=== PATIENT | female | born 1940 | race African-American/Black ===

== ENCOUNTER 2017-05-18 10:37 | Emergency (ER) | payer MEDICARE ==
[2011-12-18 06:29] VITALS: BMI 28.9
== END 2017-05-18 12:14 | disposition home or self-care (01) ==
LOC: D.ER 10:37
DX: M54.12 Radiculopathy, cervical region (principal); E11.9 Type 2 diabetes mellitus without complications

== ENCOUNTER → 2017-12-12 19:10 | Outpatient (CLI) | payer MEDICARE ==
[2011-12-18 06:29] VITALS: BMI 28.9
== END | disposition home or self-care (01) ==
LOC: D.MAMMO 06-29 10:00
DX: Z12.31 Encounter for screening mammogram for malignant neoplasm of breast (principal)

== ENCOUNTER 2019-06-20 09:00 | Outpatient (CLI) | payer MEDICARE ==
[2011-12-18 06:29] VITALS: BMI 28.9
== END 2019-06-20 10:00 | disposition home or self-care (01) ==
LOC: D.MAMMO 09:00
PROVIDERS: ATTEND Internal Medicine
DX: Z12.31 Encounter for screening mammogram for malignant neoplasm of breast (principal)